=== PATIENT | female | born 2000 | race Caucasian/White ===

== ENCOUNTER 2018-05-15 22:58 | Emergency (ER) | payer OTHER ==
[~2018-05-15] VITALS: Ht 177.8 cm; Wt 99.8 kg
[2018-05-15 23:04] VITALS: BP 150/80
--- NOTE | 2018-05-15 23:04 | NUR ---
TO BED # 3 AMBULATORY, REPORT GIVEN TO DAISHA CHING
--- NOTE | 2018-05-15 23:24 | NUR ---
18 YO F BIB SELF CO 2/10 BURNING CHEST DISCOMFORT X 3 HOURS. PT ALSO ADMITS TO FEELING DIZZY DUE TO "FREAKING OUT" ABOUT THIS NEW ONSET OF CHEST PAIN. PT DENIES SOB, NVD. --PMH: DENIES -- RX: DENIES PT POSITIONED TO COMFORT. HOB ELEVATED. SIDE RAIL UP X 1. NO APPARENT DISTRESS AT THIS TIME. VSS.
--- NOTE | 2018-05-15 23:51 | NUR ---
Dr. Hahn evaluating patient at bedside.
[2018-05-16 00:47] LABS: BASOPHILS # (AUTO) 0.1 K/uL (0.00-0.22); BASOPHILS % (AUTO) 0.4 % (0.0-2.0); EOSINOPHILS % (AUTO) 0.2 % (0.0-4.0); HEMATOCRIT 38.8 % (36-48); HEMOGLOBIN 13.1 g/dL (12.0-16.0); LYMPHOCYTES # (AUTO) 2.6 K/uL (2.5-16.5); LYMPHOCYTES % (AUTO) 20.1 % (20.5-51.1); MEAN CORPUSCULAR HEMOGLOBIN 28 pg (27-31); MEAN CORPUSCULAR HGB CONC 34 g/dL (33-37); MEAN CORPUSCULAR VOLUME 83.6 fL (80-94); MONOCYTES # (AUTO) 0.7 K/uL (0.8-1.0); MONOCYTES % (AUTO) 5.1 % (1.7-9.3); NEUTROPHILS # (AUTO) 9.5 K/uL (1.8-7.7); NEUTROPHILS % (AUTO) 74.2 % (42.2-75.2); PLATELET COUNT (AUTO) 320 K/uL (140-450); RED BLOOD CELL COUNT(AUTO) 4.65 MIL/uL (4.20-5.40); RED CELL DISTRIBUTION WIDTH 13.2 % (11.6-13.7); WHITE BLOOD COUNT (AUTO) 12.9 K/uL (4.5-11.0)
--- NOTE | 2018-05-16 00:53 | NUR ---
X-Ray at bedside.
[2018-05-16 01:08] LABS: PROTHROMBIN TIME 9.6 secs (10.8-13.4)
[2018-05-16 01:09] LABS: D-DIMER < 100 ng/ml (0-400)
[2018-05-16 01:10] LABS: ANION GAP 16.4 (8-16); CARBON DIOXIDE 22.2 mmol/L (21-32); POTASSIUM 3.6 mmol/L (3.5-5.1)
[2018-05-16 01:11] LABS: ALBUMIN 3.9 g/dL (3.4-5.0); CREATININE 0.8 mg/dL (0.6-1.3); TOTAL BILIRUBIN 0.3 mg/dL (0.0-1.0)
[2018-05-16] MEDS ORDERED: NACL 0.9% 1,000 ML IV ONE (01:15)
--- NOTE | 2018-05-16 01:30 | NUR ---
Patient appears to be resting comfortably in bed. Vital Signs within normal limits. Respirations even and unlabored. Pt denies pain at this time.
[2018-05-16] MEDS ORDERED: ALUMINUM HYD/MAG/SIMETHICONE 30 ML UDC PO ONE (01:45)
--- NOTE | 2018-05-16 01:51 | NUR ---
PT TAKEN TO CT.
[2018-05-16 03:10] VITALS: BP 106/64
--- NOTE | 2018-05-16 03:10 | NUR ---
Patient discharged with v/s stable. Written and verbal after care instructions given and explained. Patient alert, oriented and verbalized understanding of instructions. Ambulatory with steady gait. All questions addressed prior to discharge. ID band removed. Patient advised to follow up with PMD. Rx of MYLANTA given. Patient educated on indication of medication including possible reaction and side effects. Opportunity to ask questions provided and answered.
== END 2018-05-16 03:10 | disposition home or self-care (01) ==
LOC: MED 22:58
DX: R07.89 Other chest pain (principal); M79.601 Pain in right arm; R00.0 Tachycardia, unspecified; R42 Dizziness and giddiness; F41.9 Anxiety disorder, unspecified
CPT/HCPCS: 36415; 71045; 71275; 80053; 84484; 85025; 85379; 85610; 85730; 93005; 96360; 96361; 99284; J7030; Q9967